=== PATIENT | male | born 1955 | race Two or more races ===

== ENCOUNTER 2017-01-07 15:25 | Inpatient (IN) | payer MEDICAID ==
[~2017-01-07] VITALS: Ht 170.2 cm; Wt 76.1 kg
[2017-01-07] MEDS ORDERED: TAMS0.4C2 PO (15:49)
[2017-01-07] MEDS ORDERED: ROSU5TAB PO (15:49)
[2017-01-07] MEDS ORDERED: LOSA1TAB18 PO (15:49)
[2017-01-07] MEDS ORDERED: ASPI-496 PO (15:49)
[2017-01-07] MEDS ORDERED: FENO160T PO (15:49)
[2017-01-07] MEDS ORDERED: ASPIRIN 81 MG TABLET CHEW ONE (16:13)
[2017-01-07] MEDS ORDERED: HEPARIN 5,000 UNITS/ML, 1ML IV PRN (16:30)
[2017-01-07] MEDS ORDERED: HEPARIN 5,000 UNITS/ML, 1ML IV ONE (16:30)
[2017-01-07] MEDS ORDERED: ASPIRIN 81 MG TABLET CHEW PO ONE (16:30)
[2017-01-07 16:34] LABS: ASPARTATE AMINO TRANSFERASE 29 U/L (15-37); BLOOD UREA NITROGEN 15 mg/dL (7-18)
[2017-01-07 16:39] LABS: IS PT STATUS REG ER OR PRE ER? YES
[2017-01-07] MEDS ORDERED: HEPARIN 5,000 UNITS/ML, 1ML ONE (16:46)
[2017-01-07] MEDS ORDERED: HEPARIN 25,000 UNITS/500ML PMX 500 ML ONE (16:46)
[2017-01-07] MEDS: HEPARIN 25,000 UNITS/500ML PMX 500 ML IV PRN (16:54)
[2017-01-07 16:55] LABS: DIFF TOTAL CELLS COUNTED 100 CELL DIFF
[2017-01-07 16:58] LABS: VERIFY COUNTS? YES
[2017-01-07] MEDS ORDERED: NITROGLYCERIN SINGLE TAB 0.4 MG SL PRN (17:00)
[2017-01-07] MEDS ORDERED: ACETAMINOPHEN 650 MG/20.3 ML UDC PO PRN (17:00)
[2017-01-07] MEDS ORDERED: ZOLPIDEM 5MG TABLET PO PRN (17:00)
[2017-01-07] MEDS ORDERED: ONDANSETRON 2MG/ML, 2ML IVP PRN (17:00)
[2017-01-07] MEDS ORDERED: BISACODYL 5 MG EC TABLET PO PRN (17:00)
[2017-01-07] MEDS ORDERED: ASPIRIN 81 MG TABLET EC PO ONE (17:00)
[2017-01-07] MEDS ORDERED: POTASSIUM CHLORIDE 20 MEQ TAB.ER.PRT PO ONE (17:00)
[2017-01-07 19:21] VITALS: BP 106/70
[2017-01-07] MEDS: TAMSULOSIN 0.4 MG CAP.ER.24H PO SCH (20:16)
[2017-01-07] MEDS: ATORVASTATIN 20 MG TABLET PO SCH (20:16)
[2017-01-07] MEDS: SODIUM CHLORIDE FLUSH 10ML SYR IVF SCH (20:17)
[2017-01-07 23:11] VITALS: BP 107/67
[2017-01-08 02:11] VITALS: BP 96/56
[2017-01-08] MEDS: SODIUM CHLORIDE 0.9% 1,000 ML IV SCH ×5 (05:49→22:59)
[2017-01-08] MEDS: ASPIRIN 81 MG TABLET EC PO SCH (05:55)
[2017-01-08 06:34] VITALS: BP 110/71
[2017-01-08] MEDS: SODIUM CHLORIDE FLUSH 10ML SYR IVF SCH ×3 (10:14→21:00)
[2017-01-08] MEDS: LOSARTAN 50MG TABLET PO SCH (10:18)
[2017-01-08] MEDS ORDERED: LIDOCAINE 2%, 20ML ONE ×2 (12:48→12:50)
[2017-01-08] MEDS ORDERED: FENTANYL PF 100 MCG/2ML ONE (12:48)
[2017-01-08] MEDS ORDERED: MIDAZOLAM 1 MG/ML, 5ML ONE (12:48)
[2017-01-08] MEDS ORDERED: HEPARIN 1,000 UNITS/ML, 10ML ONE (12:49)
[2017-01-08] MEDS ORDERED: VERAPAMIL 2.5 MG/ML, 2ML ONE (12:49)
[2017-01-08] MEDS ORDERED: BIVALIRUDIN 250 MG ONE (13:53)
[2017-01-08] MEDS ORDERED: TICAGRELOR 90 MG TABLET ONE (13:53)
[2017-01-08 14:48] VITALS: BP 93/59
[2017-01-08] MEDS ORDERED: INSULIN ASPART 100 UNITS/ML, PEN SQ-INSULIN SCH (15:30)
[2017-01-08] MEDS ORDERED: CHLORHEXIDINE MOUTHWASH 15 ML UDC MM PRN (15:30)
[2017-01-08] MEDS ORDERED: METOPROLOL TARTRATE 25 MG TABLET PO ONE (15:30)
[2017-01-08] MEDS ORDERED: ACETAMINOPHEN 325 MG TABLET PO PRN (15:30)
[2017-01-08] MEDS ORDERED: MAGNESIUM HYDROXIDE 8%, 30ML UDC PO PRN (15:30)
[2017-01-08 15:54] LABS: ASPARTATE AMINO TRANSFERASE 26 U/L (15-37); BLOOD UREA NITROGEN 14 mg/dL (7-18)
[2017-01-08 18:07] VITALS: BP 123/85
[2017-01-08 18:51] LABS: DIFF TOTAL CELLS COUNTED 100 CELL DIFF
[2017-01-08 18:57] LABS: VERIFY COUNTS? YES
[2017-01-08 19:15] VITALS: BP 120/82
[2017-01-08] MEDS: TAMSULOSIN 0.4 MG CAP.ER.24H PO SCH (20:41)
[2017-01-08] MEDS: ATORVASTATIN 20 MG TABLET PO SCH (20:41)
[2017-01-08] MEDS ORDERED: TAMSULOSIN 0.4 MG CAP.ER.24H PO ONE (22:00)
[2017-01-08] MEDS: MUPIROCIN OINT 2%, 22GM TP SCH (22:51)
[2017-01-08] MEDS: HEPARIN 25,000 UNITS/500ML PMX 500 ML IV PRN (22:57)
[2017-01-09 04:00] VITALS: BP_SYST 117; BP_SYST 119; BP_DIAS 75; BP_DIAS 79
[2017-01-09] MEDS ORDERED: METOPROLOL TARTRATE 25 MG TABLET PO ONE (05:00)
[2017-01-09] MEDS: MUPIROCIN OINT 2%, 22GM TP SCH (05:02)
[2017-01-09] MEDS: ASPIRIN 81 MG TABLET EC PO SCH (05:06)
[2017-01-09] MEDS ORDERED: MIDAZOLAM 10MG/2 ML ONE (07:03)
[2017-01-09] MEDS ORDERED: FENTANYL PF 1000 MCG/20ML ONE (07:03)
[2017-01-09] MEDS ORDERED: CEFUROXIME 1.5 GM in SODIUM CHLORIDE 0.9% 50 ML IVPB PRN (07:30)
[2017-01-09] MEDS ORDERED: EPINEPHRINE 2 MG in SODIUM CHLORIDE 0.9% 248 ML IV SCH (07:30)
[2017-01-09] MEDS ORDERED: ALBUMIN HUMAN 5% 500 ML IV ONE (07:30)
[2017-01-09] MEDS ORDERED: PHENYLEPHRINE 10 MG in SODIUM CHLORIDE 0.9% 249 ML IV PRN ×2 (07:30→12:45)
[2017-01-09] MEDS ORDERED: POTASSIUM CHLORIDE 80 MEQ, SODIUM BICARBONATE 8.4% 10 MEQ, MAGNESIUM SULFATE 0.5 GM, LI... IV PRN (07:30)
[2017-01-09] MEDS ORDERED: DEXMEDETOMIDINE 200 MCG in SODIUM CHLORIDE 0.9% 48 ML IV SCH (07:30)
[2017-01-09] MEDS ORDERED: REGULAR INSULIN 62.5 UNITS in SODIUM CHLORIDE 0.9% 249.375 ML IV PRN ×2 (07:30→12:45)
[2017-01-09] MEDS ORDERED: MANNITOL PMX 20% 500 ML IVPB PRN (07:30)
[2017-01-09] MEDS ORDERED: VANCOMYCIN PMX 1GM/200ML 200 ML IVPB PRN (07:30)
[2017-01-09] MEDS ORDERED: ROCURONIUM 10 MG/ML ONE (07:40)
[2017-01-09] MEDS ORDERED: PROPOFOL 10 MG/ML, 20ML ONE (07:40)
[2017-01-09] MEDS: LOSARTAN 50MG TABLET PO SCH (09:00)
[2017-01-09 12:11] LABS: ABG COLLECTION SITE ARTERIAL LINE
[2017-01-09 12:22] LABS: BLOOD UREA NITROGEN 12 mg/dL (7-18)
[2017-01-09 12:33] LABS: DIFF TOTAL CELLS COUNTED 100 CELL DIFF
[2017-01-09 12:41] LABS: VERIFY COUNTS? YES
[2017-01-09] MEDS ORDERED: SODIUM CHLORIDE 0.9% 1,000 ML IV PRN (12:45)
[2017-01-09] MEDS ORDERED: SODIUM CHLORIDE 0.9% 1,000 ML IV ONE (12:45)
[2017-01-09] MEDS ORDERED: DOBUTAMINE 250 MG in SODIUM CHLORIDE 0.9% 230 ML IV PRN (12:45)
[2017-01-09] MEDS ORDERED: NITROGLYCERIN/D5W PMX 250 ML IV PRN (12:45)
[2017-01-09] MEDS ORDERED: CLEVIDIPINE 50 ML IV PRN (12:45)
[2017-01-09] MEDS ORDERED: DEXMEDETOMIDINE 200 MCG in SODIUM CHLORIDE 0.9% 48 ML IV PRN (12:45)
[2017-01-09] MEDS ORDERED: SODIUM BICARB 8.4%, 50ML SYRINGE ONE (12:46)
[2017-01-09] MEDS ORDERED: DEXTROSE 50%, 50ML SYRINGE IVPush PRN (13:00)
[2017-01-09] MEDS ORDERED: CEFUROXIME 1.5 GM in SODIUM CHLORIDE 0.9% 50 ML IVPB SCH (13:00)
[2017-01-09] MEDS ORDERED: PROCHLORPERAZINE 5 MG/ML, 2ML IVPush PRN (13:00)
[2017-01-09] MEDS ORDERED: DEXTROSE 4 GM TAB.CHEW PO PRN (13:00)
[2017-01-09] MEDS ORDERED: ACETAMINOPHEN 650 MG SUPP PR PRN (13:00)
[2017-01-09] MEDS ORDERED: BISACODYL 10 MG SUPP PR PRN (13:00)
[2017-01-09] MEDS ORDERED: ONDANSETRON 2MG/ML, 2ML IVPush PRN (13:00)
[2017-01-09] MEDS ORDERED: SODIUM BICARB 8.4%, 50ML SYRINGE IV PRN (13:00)
[2017-01-09] MEDS ORDERED: ACETAMINOPHEN 325 MG TABLET PO PRN (13:00)
[2017-01-09] MEDS ORDERED: MEPERIDINE/PF 25MG/0.5ML IVPush PRN (13:00)
[2017-01-09] MEDS ORDERED: BISACODYL 5 MG EC TABLET PO PRN (13:00)
[2017-01-09] MEDS ORDERED: MIDAZOLAM 1 MG/ML, 5ML IVPush PRN (13:00)
[2017-01-09] MEDS ORDERED: VANCOMYCIN 1,100 MG in SODIUM CHLORIDE 0.9% 250 ML IVPB SCH (13:00)
[2017-01-09] MEDS ORDERED: EPINEPHRINE 2 MG in SODIUM CHLORIDE 0.9% 248 ML IV PRN (13:00)
[2017-01-09] MEDS ORDERED: GLUCAGON 1 MG IM PRN (13:00)
[2017-01-09] MEDS ORDERED: LACTATED RINGERS 500 ML IVBOLUS PRN (13:00)
[2017-01-09] MEDS: KSCALE TO 4.5 IV SCH ×2 (13:00→20:16)
[2017-01-09] MEDS ORDERED: morphine SULFATE 10 MG/ML, 1ML ONE (13:01)
[2017-01-09] MEDS: morphine SULFATE 10 MG/ML, 1ML IVPush PRN ×4 (13:04→15:55)
[2017-01-09] MEDS: MAGNESIUM SULFATE 1 GM in SODIUM CHLORIDE 0.9% 50 ML IVPB SCH (13:36)
[2017-01-09] MEDS ORDERED: POTASSIUM CHLORIDE PMX 100 ML IV ONE ×2 (14:00→20:00)
[2017-01-09] MEDS: SODIUM CHLORIDE FLUSH 10ML SYR IVF SCH ×3 (14:08→21:14)
[2017-01-09] MEDS ORDERED: HEPARIN 1,000 UNITS/ML, 30ML ONE (14:14)
[2017-01-09] MEDS ORDERED: SODIUM BICARBONATE 1 MEQ/ML, 50ML VIAL ONE (14:14)
[2017-01-09] MEDS ORDERED: ALBUMIN HUMAN 25% 50 ML ONE (14:14)
[2017-01-09] MEDS ORDERED: CALCIUM CHLORIDE 10%, 10ML SYR ONE (14:14)
[2017-01-09] MEDS ORDERED: PROTAMINE SULFATE 10 MG/ML, 25ML ONE (14:14)
[2017-01-09] MEDS ORDERED: LIDOCAINE 2% 100MG/5ML SYRINGE ONE (14:15)
[2017-01-09] MEDS ORDERED: HEPARIN 1,000 UNITS/ML, 10ML ONE (14:15)
[2017-01-09] MEDS ORDERED: methylPREDNISolone SOD SUCC 125 MG/2 ML ONE (14:15)
[2017-01-09] MEDS ORDERED: VASOPRESSIN 20 UNIT/ML, 1ML ONE (14:15)
[2017-01-09] MEDS ORDERED: PAPAVERINE 30 MG/ML, 2ML ONE (14:15)
[2017-01-09] MEDS ORDERED: FUROSEMIDE 20 MG/2 ML ONE (14:15)
[2017-01-09] MEDS ORDERED: AMINOCAPROIC ACID 250 MG/ML, 20ML ONE (14:18)
[2017-01-09] MEDS: HYDROcodone/APAP 10/325 MG TABLET PO PRN ×2 (16:25→20:26)
[2017-01-09] MEDS: CEFUROXIME 1.5 GM in SODIUM CHLORIDE 0.9% 50 ML IVPB SCH (19:40)
[2017-01-09] MEDS: VANCOMYCIN PMX 1GM/200ML 200 ML IVPB SCH (20:16)
[2017-01-09] MEDS: MUPIROCIN OINT 2%, 22GM NAS SCH (21:14)
[2017-01-09] MEDS: DOCUSATE 100 MG CAPSULE PO SCH (21:14)
[2017-01-09] MEDS: TAMSULOSIN 0.4 MG CAP.ER.24H PO SCH (22:10)
[2017-01-09] MEDS: OXYcodone IR 5MG TABLET PO PRN (22:10)
[2017-01-09] MEDS: ATORVASTATIN 20 MG TABLET PO SCH (22:10)
[2017-01-10] MEDS: KSCALE TO 4.5 IV SCH ×3 (01:14→12:19)
[2017-01-10] MEDS ORDERED: POTASSIUM CHLORIDE PMX 100 ML IV ONE (01:30)
[2017-01-10] MEDS: OXYcodone IR 5MG TABLET PO PRN ×4 (02:20→19:54)
[2017-01-10 04:50] LABS: ABG COLLECTION SITE NOT DOCUMENTED
[2017-01-10 05:04] LABS: BLOOD UREA NITROGEN 14 mg/dL (7-18)
[2017-01-10 05:50] LABS: DIFF TOTAL CELLS COUNTED 100 CELL DIFF
[2017-01-10 05:51] LABS: VERIFY COUNTS? YES
[2017-01-10 05:53] LABS: POLYCHROMASIA 1+
[2017-01-10] MEDS ORDERED: CALCIUM CHLORIDE 13.6 MEQ in SODIUM CHLORIDE 0.9% 100 ML IV ONE (07:30)
[2017-01-10] MEDS: VANCOMYCIN PMX 1GM/200ML 200 ML IVPB SCH (08:04)
[2017-01-10] MEDS: METOPROLOL TARTRATE 25 MG TABLET PO/NG SCH ×2 (09:00→21:19)
[2017-01-10] MEDS ORDERED: FENOFIBRATE 145 MG TABLET PO SCH (09:00)
[2017-01-10] MEDS: CEFUROXIME 1.5 GM in SODIUM CHLORIDE 0.9% 50 ML IVPB SCH (09:36)
[2017-01-10] MEDS: PANTOPRAZOLE 40 MG IV IVPush SCH (09:36)
[2017-01-10] MEDS: DOCUSATE 100 MG CAPSULE PO SCH ×2 (09:40→21:18)
[2017-01-10] MEDS: MUPIROCIN OINT 2%, 22GM NAS SCH ×2 (09:40→21:17)
[2017-01-10] MEDS: ASPIRIN 81 MG TABLET EC PO SCH (09:41)
[2017-01-10] MEDS: FENOFIBRATE 145 MG TABLET PO SCH (09:41)
[2017-01-10] MEDS: HYDROcodone/APAP 10/325 MG TABLET PO PRN ×2 (09:44→23:44)
[2017-01-10] MEDS: SODIUM CHLORIDE FLUSH 10ML SYR IVF SCH ×2 (12:19→21:17)
[2017-01-10] MEDS: CHLORHEXIDINE MOUTHWASH 15 ML UDC MM SCH (13:25)
[2017-01-10 13:53] VITALS: BP 90/59
[2017-01-10] MEDS: MAGNESIUM SULFATE 1 GM in SODIUM CHLORIDE 0.9% 50 ML IVPB SCH (16:02)
[2017-01-10] MEDS: INSULIN ASPART 100 UNITS/ML, PEN SQ-INSULIN PRN ×2 (17:47→21:33)
[2017-01-10 19:36] VITALS: BP 97/60
[2017-01-10] MEDS ORDERED: SODIUM CHLORIDE FLUSH 10ML SYR IVF SCH (21:00)
[2017-01-10] MEDS: TAMSULOSIN 0.4 MG CAP.ER.24H PO SCH (21:17)
[2017-01-10] MEDS: ATORVASTATIN 10 MG TABLET PO SCH (21:18)
[2017-01-10 21:33] VITALS: BP 109/70
[2017-01-11] MEDS: CHLORHEXIDINE MOUTHWASH 15 ML UDC MM SCH ×3 (01:03→21:03)
[2017-01-11 01:08] VITALS: BP 110/72
[2017-01-11] MEDS: INSULIN ASPART 100 UNITS/ML, PEN SQ-INSULIN PRN ×5 (03:14→21:12)
[2017-01-11 03:43] LABS: BLOOD UREA NITROGEN 15 mg/dL (7-18)
[2017-01-11 04:23] LABS: DIFF TOTAL CELLS COUNTED 100 CELL DIFF
[2017-01-11 04:28] LABS: POLYCHROMASIA 1+; VERIFY COUNTS? YES
[2017-01-11 04:29] LABS: LARGE PLATELETS 1+
[2017-01-11 06:50] VITALS: BP 105/70
[2017-01-11] MEDS: SODIUM CHLORIDE FLUSH 10ML SYR IVF SCH ×2 (09:00→22:42)
[2017-01-11] MEDS ORDERED: ENOXAPARIN 40 MG/0.4 ML SQ SCH (09:00)
[2017-01-11] MEDS: CLOPIDOGREL 75 MG TABLET PO SCH (09:00)
[2017-01-11] MEDS: METOPROLOL TARTRATE 25 MG TABLET PO/NG SCH ×2 (09:28→21:03)
[2017-01-11] MEDS: ASPIRIN 81 MG TABLET EC PO SCH (09:28)
[2017-01-11] MEDS: MUPIROCIN OINT 2%, 22GM NAS SCH ×2 (09:28→22:41)
[2017-01-11] MEDS: DOCUSATE 100 MG CAPSULE PO SCH ×2 (09:28→21:00)
[2017-01-11] MEDS: HYDROcodone/APAP 10/325 MG TABLET PO PRN (09:28)
[2017-01-11] MEDS: FENOFIBRATE 145 MG TABLET PO SCH (09:28)
[2017-01-11] MEDS: ENOXAPARIN 40 MG/0.4 ML SQ SCH (09:29)
[2017-01-11] MEDS: PANTOPRAZOLE 40 MG IV IVPush SCH (09:29)
[2017-01-11] MEDS: MAGNESIUM HYDROXIDE 8%, 30ML UDC PO PRN (09:29)
[2017-01-11] MEDS: FUROSEMIDE 20 MG/2 ML IV SCH (12:14)
[2017-01-11] MEDS: GUAIFENESIN 200 MG TABLET PO SCH ×3 (12:14→21:03)
[2017-01-11] MEDS: POTASSIUM CHLORIDE 10 MEQ TABLET.ER PO SCH (12:14)
[2017-01-11 12:54] VITALS: BP 112/74
[2017-01-11] MEDS: MAGNESIUM SULFATE 1 GM in SODIUM CHLORIDE 0.9% 50 ML IVPB SCH (15:57)
[2017-01-11] MEDS: OXYcodone IR 5MG TABLET PO PRN (18:52)
[2017-01-11 20:56] VITALS: BP 100/62
[2017-01-11] MEDS ORDERED: TAMSULOSIN 0.4 MG CAP.ER.24H PO ONE (21:00)
[2017-01-11] MEDS: TAMSULOSIN 0.4 MG CAP.ER.24H PO SCH (21:02)
[2017-01-11] MEDS: ATORVASTATIN 10 MG TABLET PO SCH (21:02)
[2017-01-12 04:44] VITALS: BP 115/70
[2017-01-12] MEDS: GUAIFENESIN 200 MG TABLET PO SCH ×4 (04:45→21:00)
[2017-01-12 06:33] LABS: BLOOD UREA NITROGEN 13 mg/dL (7-18)
[2017-01-12] MEDS: POTASSIUM CHLORIDE 10 MEQ TABLET.ER PO SCH (08:00)
[2017-01-12] MEDS: ASPIRIN 81 MG TABLET EC PO SCH (09:00)
[2017-01-12] MEDS: SODIUM CHLORIDE FLUSH 10ML SYR IVF SCH ×2 (09:00→21:00)
[2017-01-12] MEDS: METOPROLOL TARTRATE 25 MG TABLET PO/NG SCH ×2 (09:00→21:00)
[2017-01-12] MEDS: MUPIROCIN OINT 2%, 22GM NAS SCH ×2 (09:00→21:00)
[2017-01-12] MEDS: DOCUSATE 100 MG CAPSULE PO SCH ×2 (09:00→21:00)
[2017-01-12] MEDS: FENOFIBRATE 145 MG TABLET PO SCH (09:00)
[2017-01-12] MEDS: ENOXAPARIN 40 MG/0.4 ML SQ SCH (09:00)
[2017-01-12] MEDS: FUROSEMIDE 20 MG/2 ML IV SCH (09:00)
[2017-01-12] MEDS ORDERED: CLOPIDOGREL 75 MG TABLET PO SCH (09:00)
[2017-01-12] MEDS: PANTOPRAZOLE 40 MG IV IVPush SCH (09:00)
[2017-01-12] MEDS: CLOPIDOGREL 75 MG TABLET PO SCH (09:00)
[2017-01-12] MEDS: INSULIN ASPART 100 UNITS/ML, PEN SQ-INSULIN PRN ×2 (11:00→21:00)
[2017-01-12] MEDS: FINASTERIDE 5 MG TABLET PO SCH (12:40)
[2017-01-12] MEDS: HYDROcodone/APAP 10/325 MG TABLET PO PRN (13:00)
[2017-01-12 20:40] VITALS: BP 101/68
[2017-01-12] MEDS: ATORVASTATIN 10 MG TABLET PO SCH (21:00)
[2017-01-12] MEDS: TAMSULOSIN 0.4 MG CAP.ER.24H PO SCH (21:00)
[2017-01-13 01:40] VITALS: BP 106/71
[2017-01-13] MEDS: GUAIFENESIN 200 MG TABLET PO SCH ×4 (06:00→19:48)
[2017-01-13 06:53] VITALS: BP 107/69
[2017-01-13] MEDS: POTASSIUM CHLORIDE 10 MEQ TABLET.ER PO SCH (08:00)
[2017-01-13] MEDS: ASPIRIN 81 MG TABLET EC PO SCH (09:00)
[2017-01-13] MEDS: METOPROLOL TARTRATE 25 MG TABLET PO/NG SCH ×3 (09:00→19:53)
[2017-01-13] MEDS: ENOXAPARIN 40 MG/0.4 ML SQ SCH (09:00)
[2017-01-13] MEDS: PANTOPRAZOLE 40 MG IV IVPush SCH (09:00)
[2017-01-13] MEDS: CLOPIDOGREL 75 MG TABLET PO SCH (09:00)
[2017-01-13] MEDS: MUPIROCIN OINT 2%, 22GM NAS SCH ×2 (09:00→19:48)
[2017-01-13] MEDS: SODIUM CHLORIDE FLUSH 10ML SYR IVF SCH ×2 (09:00→19:48)
[2017-01-13] MEDS: FUROSEMIDE 20 MG/2 ML IV SCH (09:00)
[2017-01-13] MEDS: FENOFIBRATE 145 MG TABLET PO SCH (09:00)
[2017-01-13] MEDS: FINASTERIDE 5 MG TABLET PO SCH (09:00)
[2017-01-13] MEDS: MAGNESIUM HYDROXIDE 8%, 30ML UDC PO PRN (09:00)
[2017-01-13] MEDS: DOCUSATE 100 MG CAPSULE PO SCH ×2 (09:00→19:48)
[2017-01-13] MEDS ORDERED: POTASSIUM CHLORIDE 20 MEQ TAB.ER.PRT ONE (09:41)
[2017-01-13 13:05] VITALS: BP 95/63
[2017-01-13 19:15] VITALS: BP 110/73
[2017-01-13] MEDS: ATORVASTATIN 10 MG TABLET PO SCH (19:48)
[2017-01-13] MEDS: TAMSULOSIN 0.4 MG CAP.ER.24H PO SCH (19:48)
[2017-01-13 19:49] VITALS: BP 99/65
[2017-01-14 02:27] VITALS: BP 111/72
[2017-01-14] MEDS: HYDROcodone/APAP 10/325 MG TABLET PO PRN ×2 (04:23→08:46)
[2017-01-14 05:19] LABS: BLOOD UREA NITROGEN 14 mg/dL (7-18)
[2017-01-14] MEDS: GUAIFENESIN 200 MG TABLET PO SCH ×2 (05:36→11:26)
[2017-01-14 08:05] VITALS: BP 118/79
[2017-01-14] MEDS: POTASSIUM CHLORIDE 10 MEQ TABLET.ER PO SCH (08:09)
[2017-01-14] MEDS: FUROSEMIDE 20 MG/2 ML IV SCH (08:09)
[2017-01-14] MEDS: SODIUM CHLORIDE FLUSH 10ML SYR IVF SCH (08:10)
[2017-01-14] MEDS: PANTOPRAZOLE 40 MG IV IVPush SCH (08:10)
[2017-01-14] MEDS: DOCUSATE 100 MG CAPSULE PO SCH (08:10)
[2017-01-14] MEDS: FENOFIBRATE 145 MG TABLET PO SCH (08:11)
[2017-01-14] MEDS: CLOPIDOGREL 75 MG TABLET PO SCH (08:11)
[2017-01-14] MEDS: ENOXAPARIN 40 MG/0.4 ML SQ SCH (08:11)
[2017-01-14] MEDS: FINASTERIDE 5 MG TABLET PO SCH (08:11)
[2017-01-14] MEDS: METOPROLOL TARTRATE 25 MG TABLET PO/NG SCH (08:11)
[2017-01-14] MEDS: ASPIRIN 81 MG TABLET EC PO SCH (08:11)
[2017-01-14] MEDS: MUPIROCIN OINT 2%, 22GM NAS SCH (08:12)
[2017-01-14] MEDS: MAGNESIUM HYDROXIDE 8%, 30ML UDC PO PRN (09:04)
[2017-01-14 13:03] VITALS: BP 108/72
[2017-01-14] MEDS ORDERED: CLOP75TA PO (13:21)
[2017-01-14] MEDS ORDERED: FINA5TAB4 PO (13:21)
[2017-01-14] MEDS ORDERED: POTA10TA5 PO (13:21)
[2017-01-14] MEDS ORDERED: FURO-93 PO (13:21)
[2017-01-14] MEDS ORDERED: DOCU-30 PO (13:21)
[2017-01-14] MEDS ORDERED: METO25TA35 PO/NG (13:21)
[2017-01-14] MEDS ORDERED: ATOR10TA9 PO (15:02)
[2017-01-14] MEDS ORDERED: ENOX40SY5 SQ (15:05)
[2017-01-14] MEDS ORDERED: GUAI400T8 PO (15:06)
[2017-01-14] MEDS ORDERED: PANT40TA5 PO (15:06)
[2017-01-14] MEDS ORDERED: ACET-1757 PO (15:07)
[2017-01-14] MEDS ORDERED: BISA-49 PO (15:09)
[2017-01-14] MEDS ORDERED: ALPR0.254 PO (15:09)
[2017-01-14] MEDS ORDERED: DEXT15LI12 PO (15:16)
[2017-01-14] MEDS ORDERED: GLUC1VIA4 IM (15:17)
[2017-01-14] MEDS ORDERED: HYDR-3144 PO (15:19)
[2017-01-14] MEDS ORDERED: MAGN400O4 PO (15:21)
[2017-01-14] MEDS ORDERED: ONDA4TAB10 IVPush (15:23)
[2017-01-14] MEDS ORDERED: OXYC5TAB3 PO (15:24)
[2017-01-14] MEDS ORDERED: PROC5TAB40 IVPush (15:25)
[2017-01-14] MEDS ORDERED: ZOLP-413 PO (15:26)
[2017-01-14] MEDS ORDERED: DEXT4TAB PO (15:37)
[2017-01-15 16:52] LABS: BLOOD UREA NITROGEN 13 mg/dL (7-18)
== END 2017-01-14 16:10 | DRG 234 ==
LOC: ED 16:32 → EDIP 16:37 → 5SO 17:35 → CSU 01-09 10:38 → 5SO 01-10 13:45
PROVIDERS: ADMIT Internal Medicine Cardiovascular Disease; ATTEND Internal Medicine Cardiovascular Disease
PROC: 4A023N7 Measurement of Cardiac Sampling and Pressure, Left Heart, Percutaneous Approach (ICD-10-PCS; 2017-01-08)
PROC: B2111ZZ Fluoroscopy of Multiple Coronary Arteries using Low Osmolar Contrast (ICD-10-PCS; 2017-01-08)
PROC: B2151ZZ Fluoroscopy of Left Heart using Low Osmolar Contrast (ICD-10-PCS; 2017-01-08)
PROC: 02100Z9 Bypass Coronary Artery, One Artery from Left Internal Mammary, Open Approach (ICD-10-PCS; 2017-01-09)
PROC: [UNRECOGNIZED PROCEDURE] (2017-01-09)
PROC: 5A1221Z Performance of Cardiac Output, Continuous (ICD-10-PCS; 2017-01-09)
PROC: B246ZZ4 Ultrasonography of Right and Left Heart, Transesophageal (ICD-10-PCS; 2017-01-09)
PROC: 021109W Bypass Coronary Artery, Two Arteries from Aorta with Autologous Venous Tissue, Open Approach (ICD-10-PCS; principal; 2017-01-09 08:00)
DX: I25.110 Atherosclerotic heart disease of native coronary artery with unstable angina pectoris (principal); I10 Essential (primary) hypertension; E78.5 Hyperlipidemia, unspecified; N40.0 Benign prostatic hyperplasia without lower urinary tract symptoms; E78.00 Pure hypercholesterolemia, unspecified; F17.210 Nicotine dependence, cigarettes, uncomplicated; D72.829 Elevated white blood cell count, unspecified; Z82.49 Family history of ischemic heart disease and other diseases of the circulatory system; Z79.82 Long term (current) use of aspirin; Z79.899 Other long term (current) drug therapy
CPT/HCPCS: 36415; 36600; 71010; 71020; 80048; 80053; 80061; 81003; 82040; 82330; 82800; 82803; 82810; 82947; 82962; 83036; 83735; 84132; 84295; 84484; 85014; 85018; 85025; 85049; 85347; 85520; 85610; 85730; 86850; 86900; 86923; 87081; 92920; 93005; 93306; 93312; 93321; 93325; 93458; 93880; 93970; 94002; 96365; 96375; 99156; 99157; C1769; C1894; J0583; J0697; J1644; J1650; J1815; J2250; J2704; J2720; J3010; J3370; J3475; J3480; J3490; J7120; P9045; P9047; 92928; C1725; C9113; J0171; J0280; J1940; J2270; J2370; J2440; J2930; J7030; J7050; Q9967

== ENCOUNTER → 2017-01-07 | Outpatient (CLI) | payer MEDICAID ==
[~2017-01-07] MED LIST: ASPI-496 PO; FENO160T PO; LOSA1TAB18 PO; REGADENOSON 0.4 MG/5 ML SYRINGE ONE; ROSU5TAB PO; TAMS0.4C2 PO
== END | disposition home or self-care (01) ==
LOC: CFH 11:47
PROVIDERS: ATTEND Family Medicine
DX: I99.8 Other disorder of circulatory system (principal); R06.09 Other forms of dyspnea
CPT/HCPCS: 78452; 93017; A9502; J2785; 36415; 82330; 82803; 82947; 84132; 84295; 85014; 85347

== ENCOUNTER 2017-02-01 21:35 | Emergency (ER) | payer MEDICAID ==
[~2017-02-01] VITALS: Ht 170.2 cm; Wt 65.0 kg
[~2017-02-01 21:35] MED LIST changes: +ACET-1757 PO; +ALPR0.254 PO; +ATOR10TA9 PO; +BISA-49 PO; +CLOP75TA PO; +DEXT15LI12 PO; +DEXT4TAB PO; +DOCU-30 PO; +ENOX40SY5 SQ; +FINA5TAB4 PO; +FURO-93 PO; +GLUC1VIA4 IM; +GUAI400T8 PO; +HYDR-3144 PO; +MAGN400O4 PO; +METO25TA35 PO/NG; +ONDA4TAB10 IVPush; +OXYC5TAB3 PO; +PANT40TA5 PO; +POTA10TA5 PO; +PROC5TAB40 IVPush; -REGADENOSON 0.4 MG/5 ML SYRINGE ONE; +ZOLP-413 PO
[2017-02-01 23:14] VITALS: BP 110/70
== END 2017-02-02 00:12 | disposition home or self-care (01) ==
LOC: ED 22:20
DX: R00.2 Palpitations (principal); R00.0 Tachycardia, unspecified; I10 Essential (primary) hypertension; E78.5 Hyperlipidemia, unspecified
CPT/HCPCS: 93005; 99283

== ENCOUNTER 2018-12-12 08:49 | Emergency (ER) | payer MEDICAID, MEDICARE ==
[~2018-12-12] VITALS: Ht 170.2 cm; Wt 71.9 kg
[~2018-12-12 08:49] MED LIST changes: +DEXT-230 PO; -DEXT4TAB PO; +DOCU-131 PO; -DOCU-30 PO; -HYDR-3144 PO; +HYDR-3245 PO; -LOSA1TAB18 PO; +LOSA1TAB25 PO; -MAGN400O4 PO; +MAGN400O7 PO
[2018-12-12 09:05] VITALS: BP 133/86
--- NOTE | 2018-12-12 09:16 | NUR ---
Pt to 32 from lobby
[2018-12-12] MEDS ORDERED: LIDOCAINE-MPF 1%, 5ML ONE (09:26)
--- NOTE | 2018-12-12 09:31 | NUR ---
Fish hook present R index finger. No bleeding, minimal pain. Lido pulled for PA to numb before taking out.
[2018-12-12] MEDS ORDERED: DIPH,PERTUSS(ACELL),TET VAC/PF 0.5 ML IM-VACC ONE ×2 (09:51→10:00)
[2018-12-12] MEDS ORDERED: LIDOCAINE 1%, 10ML INFIL ONE (10:00)
--- NOTE | 2018-12-12 10:06 | NUR ---
Patient/Caregiver given discharge instructions and they have confirmed that they understand the instructions. Patient ambulatory with steady gait.
== END 2018-12-12 10:07 | disposition home or self-care (01) ==
LOC: ED 09:50
DX: S60.450A Superficial foreign body of right index finger, initial encounter (principal); I24.9 Acute ischemic heart disease, unspecified; I10 Essential (primary) hypertension; E78.5 Hyperlipidemia, unspecified; X58.XXXA Exposure to other specified factors, initial encounter; Y93.89 Activity, other specified; Y92.098 Other place in other non-institutional residence as the place of occurrence of the external cause; Y99.8 Other external cause status
CPT/HCPCS: 64400; 64450; 90471; 90715; 99283; 99284